=== PATIENT | male | born 1950 | race Caucasian/White ===

== ENCOUNTER → 2017-09-19 | Outpatient (CLI) | payer OTHER | END | disposition home or self-care (01) | LOC: SHCH 11:50 | PROVIDERS: ATTEND Internal Medicine Cardiovascular Disease | DX: R00.1 Bradycardia, unspecified (principal) | CPT/HCPCS: 93306 ==

== ENCOUNTER → 2020-02-29 | Outpatient (CLI) | payer OTHER | END | disposition home or self-care (01) | LOC: SHCH 11:09 | PROVIDERS: ATTEND Internal Medicine Cardiovascular Disease | DX: R00.1 Bradycardia, unspecified (principal) | CPT/HCPCS: 93306; 93356 ==

== ENCOUNTER → 2020-07-13 | Outpatient (CLI) | payer OTHER | END | disposition home or self-care (01) | LOC: SLP 20:28 | PROVIDERS: ATTEND Internal Medicine Cardiovascular Disease | DX: G47.33 Obstructive sleep apnea (adult) (pediatric) (principal); R00.1 Bradycardia, unspecified | CPT/HCPCS: 95810 ==

== ENCOUNTER 2020-08-19 12:02 | Observation (INO) | payer OTHER ==
[~2020-08-19] VITALS: Ht 185.4 cm; Wt 86.8 kg
[2020-08-19] VITALS (13 sets, daily range): BP systolic 118–153; BP diastolic 70–92
[2020-08-19 12:34] LABS: BASOPHILS % (AUTO) 0.3 % (0.0-5.0); EOSINOPHILS % (AUTO) 0.7 % (0.0-8.0); LYMPHOCYTES % (AUTO) 29.2 % (21.0-51.0); MEAN CORPUSCULAR HGB CONC 34.1 g/dL (32.0-36.0); MEAN CORPUSCULAR VOLUME 93.8 fL (79-99); MONOCYTES % (AUTO) 8.9 % (3.0-13.0); NEUTROPHILS % (AUTO) 60.5 % (40.0-77.0); PLATELET COUNT (AUTO) 141 K/uL (130-400); RED BLOOD CELL COUNT(AUTO) 4.69 MIL/uL (4.50-6.20); RED CELL DISTRIBUTION WIDTH 11.8 % (11.0-15.5); WHITE BLOOD COUNT (AUTO) 6.7 K/uL (4.8-10.8)
[2020-08-19 12:42] LABS: CREATININE 0.9 mg/dL (0.5-1.5); POTASSIUM 4.1 mmol/L (3.5-5.1)
[2020-08-19 12:47] LABS: ALBUMIN 4.4 g/dL (3.5-5.0); BILIRUBIN,TOTAL 1.4 mg/dL (0.2-1.0); TOTAL PROTEIN, SERUM 8.3 g/dL (6.0-8.3)
[2020-08-19 12:52] LABS: INR 0.99 (0.85-1.15); PROTHROMBIN TIME 10.6 SEC (9.6-11.6)
[2020-08-19 12:53] LABS: PARTIAL THROMBOPLASTIN TIME 27.3 SEC (26.3-35.5)
[2020-08-19] MEDS ORDERED: ACETAMINOPHEN 325 MG TAB PO PRN ×2 (13:15)
[2020-08-19] MEDS ORDERED: ONDANSETRON HCL 4 MG/2 ML VIAL IV PRN (13:15)
[2020-08-19] MEDS ORDERED: SODIUM CHLORIDE 0.9% 1000ML 1,000 ML IV ONE (13:57)
[2020-08-19] MEDS ORDERED: CEFAZOLIN SODIUM 1 GM VIAL ONE (16:29)
[2020-08-19] MEDS ORDERED: MEPERIDINE-PF 25 MG/ML SYG ONE ×3 (16:29→17:24)
[2020-08-19] MEDS ORDERED: MIDAZOLAM HCL 1 MG/ML 2ML VIAL ONE ×3 (16:29→17:24)
[2020-08-19] MEDS ORDERED: BUPIVACAINE/PF 0.25% 50ML VIAL IJ ONE (16:30)
[2020-08-19] MEDS ORDERED: LIDOCAINE HCL 1% MDV 50ML VIAL ONE (16:30)
[2020-08-19] MEDS ORDERED: METOPROLOL TARTRATE 1 MG/ML 5ML VIAL IV ONE (16:31)
[2020-08-19] MEDS ORDERED: TEMAZEPAM 30 MG CAP PO PRN (18:30)
--- NOTE | 2020-08-19 18:45 | NUR ---
NO BEDS AVAILABLE FOR ADMISSION AT PRESENT TIME. PT IS BEING HELD HERE IN DAYPATIENT UNTIL A BED IS AVAILABLE. PT IS STABLE. PLEASE REFER TO [employer] PT ASSESSMENTS AND FLOW SHEETS. THANK YOU
--- NOTE | 2020-08-19 20:49 | NUR ---
REPORT GIVEN TO TAD MIKE. TRANSFERRED TO [phone]
[2020-08-19] MEDS ORDERED: ATORVASTATIN CALCIUM 20 MG TABLET PO SCH (21:00)
[2020-08-19] MEDS: FAMOTIDINE/PF 20 MG/2 ML VIAL IV SCH ×2 (21:00→22:21)
[2020-08-20 00:03] VITALS: BP 143/82
[2020-08-20 01:06] VITALS: BP 124/71
[2020-08-20] MEDS: CEFAZOLIN SODIUM 1 GM VIAL IVP SCH ×2 (03:08→10:55)
[2020-08-20 04:00] VITALS: BP 129/77
[2020-08-20 05:36] LABS: BASOPHILS % (AUTO) 0.6 % (0.0-5.0); HEMATOCRIT 43.9 % (42-54); LYMPHOCYTES % (AUTO) 23.7 % (21.0-51.0); MEAN CORPUSCULAR HEMOGLOBIN 31.5 pg (27.0-33.0); MEAN CORPUSCULAR HGB CONC 34.4 g/dL (32.0-36.0); MEAN CORPUSCULAR VOLUME 91.6 fL (79-99); MONOCYTES % (AUTO) 7.5 % (3.0-13.0); NEUTROPHILS % (AUTO) 65.9 % (40.0-77.0); PLATELET COUNT (AUTO) 143 K/uL (130-400); RED BLOOD CELL COUNT(AUTO) 4.79 MIL/uL (4.50-6.20); RED CELL DISTRIBUTION WIDTH 11.5 % (11.0-15.5)
[2020-08-20 05:53] LABS: CREATININE 0.8 mg/dL (0.5-1.5); POTASSIUM 3.9 mmol/L (3.5-5.1)
[2020-08-20] MEDS ORDERED: LEVOTHYROXINE 125 MCG TABLET PO SCH (06:30)
[2020-08-20 07:53] VITALS: BP 127/80
[2020-08-20] MEDS ORDERED: TAMSULOSIN HCL 0.4 MG CAP.ER.24H PO SCH (09:00)
[2020-08-20] MEDS: FAMOTIDINE/PF 20 MG/2 ML VIAL IV SCH (09:00)
[2020-08-20 11:49] VITALS: BP 103/53
[2020-08-20 16:00] VITALS: BP 106/73
--- NOTE | 2020-08-20 18:03 | NUR ---
PACEMAKER Mat with [employer] called and reported patient's pacemaker was interogated remotely and he is safe for discharge. [employer] Lidya notified and patient is now ready for discharge.
== END 2020-08-20 18:30 | disposition home or self-care (01) ==
LOC: EDH 12:02 → EDHIP 13:11 → 4AH 20:59
PROVIDERS: ADMIT Hospitalist; ATTEND Hospitalist
DX: I49.5 Sick sinus syndrome (principal); I44.1 Atrioventricular block, second degree; R00.1 Bradycardia, unspecified; E03.9 Hypothyroidism, unspecified; E78.00 Pure hypercholesterolemia, unspecified; E78.5 Hyperlipidemia, unspecified; N40.0 Benign prostatic hyperplasia without lower urinary tract symptoms; G47.33 Obstructive sleep apnea (adult) (pediatric); Z87.891 Personal history of nicotine dependence; Z79.899 Other long term (current) drug therapy
CPT/HCPCS: 33208; 36415 ×2; 71045 ×2; 80048; 80053; 83880; 84484; 85025 ×2; 85610; 85730; 93005; 96374; 96376; 99285; C1785; C1894; C1898 ×2; G0378 ×28; J0690 ×3; J2175 ×3; J2250 ×3; J3490 ×5; J7030; 99156; 99157